=== PATIENT | female | born 1980 | race Caucasian/White ===

== ENCOUNTER 2017-10-28 14:37 | Emergency (ER) | payer SELFPAY ==
[2017-10-28 14:55] VITALS: TEMP 98.8; BMI 31.3
--- NOTE | 2017-10-28 15:07 | PDOC ---
History of Present Illness - General Chief Complaint: Vaginal Bleeding Stated Complaint: VAGINAL BLEEDING - History of Present Illness Initial Comments: The patient is a 37F A1 at 6wks by LMP (09/03/2017) who presents with 2 days of vaginal bleeding with clots. The patient reports intermittent heavy bleeding , soaking three pads today. The patient also reports passing clots the size of her palm but denies noticing any products of conception. She denies dysuria, hematuria, fever, sick contacts, chest pain, SOB. She endorses suprapubic abdominal pain that is described as intermittent, cramping, non-radiating, worse with palpation and nothing makes it better. 10/28/17 15:05 Past History - Past Medical History Allergies/Adverse Reactions: Allergies Allergy/AdvReac Type Severity Reaction Status Date / Time No Known Allergies Allergy Verified 10/28/17 16:32 Home Medications: Ambulatory Orders Methylergonovine Maleate [Methergine -] 0.2 mg PO TID 3 Days #9 tablet 10/28/17 Asthma: No Cancer: No Cardiac Disorders: No COPD: No Diabetes: No HTN: No Seizures: No Thyroid Disease: No - Immunization History Immunization Up to Date: Yes - Suicide/Smoking/Psychosocial Hx Smoking History: Never smoked Have you smoked in the past 12 months: No Information on smoking cessation initiated: No Hx Alcohol Use: No Drug/Substance Use Hx: No Substance Use Type: None Hx Substance Use Treatment: No Review of Systems - Review of Systems Able to Perform ROS?: Yes Comments:: GENERAL/CONSTITUTIONAL: No fever or chills. No weakness HEAD, EYES, EARS, NOSE AND THROAT: No change in vision. No ear pain or discharge. No sore throat CARDIOVASCULAR: No chest pain or shortness of breath RESPIRATORY: No cough, wheezing, or hemoptysis GASTROINTESTINAL: per HPI GENITOURINARY: No dysuria, frequency, or change in urination MUSCULOSKELETAL: No joint or muscle swelling or pain. No neck or back pain SKIN: No rash NEUROLOGIC: No headache, vertigo, loss of consciousness, or change in strength/ sensation ENDOCRINE: No increased thirst. No abnormal weight change HEMATOLOGIC/LYMPHATIC: No anemia, easy bleeding, or history of blood clots ALLERGIC/IMMUNOLOGIC: No hives or skin allergy 10/28/17 18:38 Is the patient limited [place] proficient: No *Physical Exam - Vital Signs Last Vital Signs Temp Pulse Resp BP Pulse Ox 98.8 F 71 16 128/72 98 10/28/17 14:52 10/28/17 14:52 10/28/17 14:52 10/28/17 14:52 10/28/17 14:52 - Physical Exam Comments: GENERAL: Awake, alert, and fully oriented HEAD: No signs of trauma, normocephalic, atraumatic EYES: PERRL, EOMI, sclera anicteric, conjunctiva clear ENT:Hearing grossly normal, nares patent, oropharynx clear without exudates. Moist mucosa NECK: Normal ROM, supple, no lymphadenopathy LUNGS: No distress, speaks full sentences, clear to auscultation bilaterally HEART:Regular rate and rhythm, normal S1 and S2, no murmurs appreciated, peripheral pulses normal and equal bilaterally ABDOMEN: Soft, nontender, normoactive bowel sounds. No guarding, no rebound EXTREMITIES : Normal inspection, Normal range of motion, no edema. No clubbing or cyanosis NEUROLOGICAL: Cranial nerves II through XII grossly intact. Normal speech, normal gait, no focal sensorimotor deficits SKIN: Warm, Dry, normal turgor, no rashes or lesions noted PELVIC External genitalia unremarkable. Speculum exam with clot in vaginal canal Vaginal wall mucosa is unremarkable Cervix visualized and appears open with blood in os; no active hemorrhage Bimanual exam without cervical motion tenderness, os is open, no adnexal tenderness or any masses appreciated. 10/28/17 15:37 ED Treatment Course - LABORATORY CBC & Chemistry Diagram: 10/28/17 15:10 10/28/17 15:10 - RADIOLOGY Radiology Studies Ordered: Category Date Time Status TRANSVAGINAL US PREG [US] Stat Ultrasound 10/28/17 15:03 Ordered Medical Decision Making - Medical Decision Making The patient is a 37F A1 at 6wks by LMP (09/03/2017) who presents with 2 days of vaginal bleeding with clots. Concern for threatened v complete spontaneous CMP, CBC, TS, UA Transvaginal US 10/28/17 17:40 Hgb 13 Patient w/o leukocytosis beta-quant 8000 Patient O pos, no need for Rhogam Will also give Methergine 200mcg IM once Will prescribe Methergine 200mcg PO TID for three days Counseled patient to take Ibuprofen up to 800 PO TID for cramping pain with Methergine Patient was found to have a complete spontaneous . No gestational sac seen on US Pt was discharged home/self-care. Pt was discharged with the above prescription Pt was provided written discharge instructions. Additional verbal instructions were given and discussed with Pt Pt was asked to return to the ED immediately for any new or concerning or if they worsen. Pt was in agreement, endorsed understanding, and questions were answered. Pt instructed to follow-up with PCP and OB 10/28/17 18:22 10/28/17 18:48 *DC/Admit/Observation/Transfer Diagnosis at time of Disposition: , spontaneous complete - Discharge Dispostion Disposition: HOME Condition at time of disposition: Stable Decision to Admit order: No - Prescriptions Prescriptions: Methylergonovine Maleate [Methergine -] 0.2 mg PO TID 3 Days #9 tablet - Referrals Referrals: Elsa Iglesias MD [Staff Physician] - - Patient Instructions Printed Discharge Instructions: Dealing With Miscarriage Additional Instructions: You were seen today in the Emergency Department today for vaginal bleeding. You were found to have a complete spontaneous . Please review the handout provided at discharge. Also a prescription was sent to your pharmacy for Methergine. Take as directed. Also follow up with your OB within the next 3-5 days. You will need a repeat quantitative beta-hCG in 1 week. This lab value will need to be trended. Return to the Emergency Department if you develop fevers, worsening pain, continued bleeding, worsening symptoms, or new concerning symptoms. - Post Discharge Activity
--- NOTE | 2017-10-28 15:22 | PDOC ---
Attending Attestation - HPI HPI: The patient is a 37 year old female A1 at 6wks, who presents with 2 days of vaginal bleeding with clots. LMP (09/03/2017) <Eliza Blackwood - Last Filed: 10/28/17 16:06> - Resident Resident Name: Alvaro Alexander - ED Attending Attestation I have performed the following: I have examined & evaluated the patient, The case was reviewed & discussed with the resident, I agree w/resident's findings & plan, Exceptions are as noted - Physicial Exam PE: 10/28/17 16:18 Patient is awake and alert, afebrile, well-appearing. Normocephalic, atraumatic CTA, abdomen is soft, nontender, nondistended, bowel sounds are normal in all 4 quadrants; Pelvic exam: Performed by Dr. Iglesias of WOMEN NURSE: The os is closed, there is coagulated blood and products of conception in vaginal vault. - Medical Decision Making 10/28/17 16:20 37-year-old female, 3 para 1, at approximately 6 weeks gestation presents with signs and symptoms of inevitable . Patient is hemodynamically stable. Will rule out products of conception with transvaginal ultrasound. Will consider Pitocin if products of conceptions of present. Otherwise we'll administer single dose of IM Methergine and will discharge with follow-up. <Clayton Mesa - Last Filed: 10/28/17 16:21>
[2017-10-28] MEDS ORDERED: LACTATED RINGERS SOLUTION 1,000 ML/1,000 ML INFUS.BAG IV SCH (15:45)
[2017-10-28] MEDS ORDERED: OXYTOCIN 20 UNITS in 0.9% NS 20 UNIT/1,000 ML INFUS.BAG IV SCH (15:45)
[2017-10-28] MEDS ORDERED: OXYTOCIN 10 UNITS/ML VIAL ONE (16:09)
--- NOTE | 2017-10-28 16:32 | CON.OBG ---
Consult Consult Specialty:: housekeeping coordinator Referred by:: Benjamin John ( ED RES) Reason for Consultation:: pregn & bleeding - History of Present Illness Chief Complaint: 37 yrs LMP 09/03/17 ,7.6 weeks prsented with heavy vaginal bleeding & cramps in ED. as per Resident , she passed blood clots & os was open upon the examination History of Present Illness: pt is aware she is . She did not go for check up . 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 uneventful. no h/o nausea or vomiting or dizziness . Past MH 28-30 days , regular cycle, moderate flow, no cramps Contraception none . Ob history : G1 2013 G2 2017 Sp Ab . - History Source History Provided By: Patient Limitations to Obtaining History: No Limitations - Past Medical History POLICE SURGEON: No: Migraine, Seizure Cardio/Vascular: No: HTN, Murmur Pulmonary: No: Asthma Gastrointestinal: No: Gastritis Renal/: No: UTI ...LMP: 09/03/17 ...: Yes ...: 3 ...Para: 1 ( 03/11/2013 at [facility] ) Infectious Disease: No: STD's Psych: Yes: Other (no h/o mental illness) - Past Surgical History Past Surgical History: Yes: None - Alcohol/Substance Use Hx Alcohol Use: No History of Substance Use: reports: None - Smoking History Smoking history: Never smoked Have you smoked in the past 12 months: No Home Medications - Allergies Allergies/Adverse Reactions: Allergies Allergy/AdvReac Type Severity Reaction Status Date / Time No Known Allergies Allergy Verified 10/28/17 16:32 - Home Medications Home Medications: Ambulatory Orders Methylergonovine Maleate [Methergine -] 0.2 mg PO TID 3 Days #9 tablet 10/28/17 Physical Exam-FRONT END UI DEVELOPER Vital Signs: Vital Signs Temperature 98.8 F 10/28/17 14:52 Pulse Rate 71 10/28/17 14:52 Respiratory Rate 16 10/28/17 14:52 Blood Pressure 128/72 10/28/17 14:52 O2 Sat by Pulse Oximetry (%) 98 10/28/17 14:52 Constitutional: Yes: Well Nourished, Mild Distress, Other (upset due to bleeding ) Gastrointestinal: Yes: WNL, Normal Bowel Sounds, Abdomen, Obese. No: Tenderness Pelvis: Yes: WNL External Genitalia: Yes: Normal Internal Exam Deferred: Yes Vaginal Exam: Yes: Bleeding (smll amount, fresh bleeding) Cervix: Yes: Normal, Bleeding. No: Cerv Motion Tenderness, Lesion Uterus: Yes: Normal, Anteverted, Soft. No: Tender Adnexa: Normal: Bilateral, Not Palpable: Bilateral Musculoskeletal: Yes: Other (not checked) Edema: No Labs: Laboratory Tests 10/28/17 10/28/17 15:10 15:10 WBC 8.9 Hgb 13.0 Hct 37.6 Plt Count 263 D Sodium 136 Potassium 4.6 Chloride 104 Carbon Dioxide 24 BUN 14 Creatinine 0.8 Random Glucose 94 Calcium 8.8 AST 50 H ALT 77 Beta HCG, Quant 8063.4 Problem List - Problems (1) Spontaneous Code(s): O03.9 - COMPLETE OR UNSP SPONTANEOUS WITHOUT COMPLICATION Assessment/Plan 7.5 weeks amenorrhea with vaginal bleeding Imp r/o Spontaneou Incomplete ab versus Complete plan : Quantitative Beta Hcg TVsono .. Sono Report : Thickened Em heterogenous , lt ovarian cyst .. no IU gestational sac seen . Beta HCG 8063.4 miu. blood clots & uterine contents passed in ED were sent for pathology by ED Resident Final Impression: Spontaneous Complete recommend Im Methergine Po Cytotec 200 mcg tid x 3 days follow up in the clinic at [address] [place] [address]
[2017-10-28 16:39] LABS: URINE APPEARANCE SLCLOUDY; URINE BILIRUBIN NEGATIVE (<2.0 mg/dL); URINE COLOR YELLOW; URINE GLUCOSE (UA) NEGATIVE (NEGATIVE); URINE KETONE NEGATIVE (NEGATIVE); URINE LEUK ESTERASE NEGATIVE (NEGATIVE); URINE NITRITE NEGATIVE (NEGATIVE); URINE UROBILINOGEN NEGATIVE mg/dL (0.2-1.0)
[2017-10-28 16:40] LABS: URINE PROTEIN 1+ (NEGATIVE)
[2017-10-28 16:43] LABS: HEMATOCRIT 37.6 % (32.4-45.2); MCH 30.8 pg (25.7-33.7); MCHC 34.6 g/dl (32.0-36.0); MEAN PLT VOLUME 9.9 fl (7.5-11.1); PLATELET COUNT 263 K/MM3 (134-434); RBC 4.22 M/mm3 (3.60-5.2); RDW 12.7 % (11.6-15.6); WHITE BLOOD COUNT 8.9 K/mm3 (4.0-10.0)
[2017-10-28 17:02] LABS: EPI CELLS RARE /HPF (FEW)
[2017-10-28 17:03] LABS: ALBUMIN 3.9 g/dl (3.4-5.0); ANION GAP 8 MMOL/L (8-16); BLOOD UREA NITROGEN 14 mg/dL (7-18); CHLORIDE 104 mmol/L (98-107); CO2 24 mmol/L (21-32); GLUCOSE,RANDOM 94 mg/dL (74-106); SGPT/ALT 77 U/L (12-78); SODIUM 136 mmol/L (136-145)
[2017-10-28 17:25] LABS: ALK PHOS 126 U/L (45-117); BILIRUBIN,TOTAL 0.6 mg/dL (0.2-1.0); CALCIUM 8.8 mg/dL (8.5-10.1); CREATININE 0.8 mg/dL (0.55-1.02); TOT PROT 8.2 g/dl (6.4-8.2)
[2017-10-28 17:27] LABS: POTASSIUM 4.6 mmol/L (3.5-5.1)
[2017-10-28 17:28] LABS: SGOT/AST 50 U/L (15-37)
[2017-10-28] MEDS ORDERED: METHYLERGONOVINE MALEATE 0.2 MG/1 ML AMP IM ONE (17:43)
[2017-10-28] MEDS ORDERED: RHO(D) IMMUNE GLOBULIN 1,500 UNIT DISP.SYRIN IM ONE (18:20)
[2017-10-28 18:28] VITALS: BP 99/56; PULSE 76
--- NOTE | 2017-10-30 17:53 | PATH ---
Surgical Pathology Report Patient Name: SAUD MURRY [facility]. Rec. #: [id number] /Age/Gender: 1980 (Age: 37) / F Account: [id number] Location: EMERGENCY ROOM Taken: 10/28/2017 Received: 10/29/2017 Reported: 10/30/2017 Physicians: PHYSICIAN EMERGENCY DEPT Specimen(s) Received RETAINED PRODUCTS Clinical History Heavy vaginal bleeding with clots Final Diagnosis RETAINED PRODUCTS, PASSAGE: RARE TROPHOBLASTIC TISSUE, INFLAMED AND FOCALLY NECROTIC DECIDUA ADMIXED WITH BLOOD CLOTS CONSISTENT WITH RETAINED PRODUCTS OF CONCEPTION. Electronically Signed Wendy Gillespie M.D. Gross Description Received fresh, labeled with the patient's name and indicated on the requisition to be products of conception, is a 5.5 x 4.5 x 1.0 cm aggregate of red-brown blood clot. No definite villous tissue or somatic tissue is identified. Crime Lab Analyst sections are submitted in 3 cassettes. /10/29/2017 saudi10/29/2017
== END 2017-10-28 19:10 | disposition home or self-care (01) ==
LOC: JER 14:37
PROC: 3E033GC Introduction of Other Therapeutic Substance into Peripheral Vein, Percutaneous Approach (ICD-10-PCS; principal; 2017-10-28)
DX: O26.891 Other specified pregnancy related conditions, first trimester (principal); O03.9 Complete or unspecified spontaneous abortion without complication; Z3A.01 Less than 8 weeks gestation of pregnancy
CPT/HCPCS: 36415; 76817-TC; 80053; 81003; 81015; 84702; 85027; 86850; 86900; 86901; 88305-TC; 99283-25